=== PATIENT | female | born 1980 | race Caucasian/White ===

== ENCOUNTER 2020-08-19 08:54 | Emergency (ER) | payer OTHER ==
[~2020-08-19] VITALS: Ht 165.1 cm; Wt 99.2 kg
--- NOTE | 2020-08-19 09:25 | NUR ---
PT C/O LOWER QUADRANT ABD PAIN AND NAUSEA, 03/07. PT STATES THIS EPISODE STARTED YESTERDAY, BUT SHE HAS BEEN HAVING RECURRING BOUTS SINCE 2016. PT HAS BEEN SEEING HER PRIMARY CARE, BUT THE PAIN HAS BEEN WORSENING TO THE POINT SHE CANNOT TOLERATE. THE ABD PAIN IS ALSO CAUSING LOWER BACK PAIN. PT ALSO EXPERIENCING DIFFICULTY URINATING.
[2020-08-19] MEDS ORDERED: MORPHINE SULFATE 4 MG/ML, 1ML ONE ×2 (09:50→11:26)
[2020-08-19] MEDS ORDERED: ONDANSETRON 2MG/ML, 2ML ONE ×2 (09:50→12:41)
[2020-08-19] MEDS: MORPHINE SULFATE 4 MG/ML, 1ML IVPush PRN ×2 (09:53→11:28)
[2020-08-19 09:57] LABS: BASOPHILS % (AUTO) 1 % (0-1); EOSINOPHILS % (AUTO) 2 % (1-7); LYMPHOCYTES % (AUTO) 27 % (22-44); MEAN CORPUSCULAR HEMOGLOBIN 31.3 pg (27.0-34.8); MEAN CORPUSCULAR HGB CONC 34.8 g/dL (32.4-35.8); MEAN PLATELET VOLUME 7.8 fL (7.4-10.4); MONOCYTES % (AUTO) 6 % (2-9); NEUTROPHILS % (AUTO) 64 % (42-75); PLATELET COUNT 261 x10^3/uL (130-400); RED BLOOD COUNT 4.83 x10^6/uL (3.82-5.3); RED CELL DISTRIBUTION WIDTH 13.3 % (9.6-15.2)
[2020-08-19 09:59] LABS: MD NO
[2020-08-19] MEDS ORDERED: ONDANSETRON 2MG/ML, 2ML IVPush ONE ×2 (10:00→13:00)
[2020-08-19] MEDS ORDERED: SODIUM CHLORIDE FLUSH 10ML SYR IVF ONE (10:00)
[2020-08-19 10:04] LABS: ALANINE AMINOTRANSFERASE 16 U/L (12-78); ALBUMIN 3.9 g/dL (3.4-5.0); ANION GAP 9 mmol/L (5-15); CALCIUM 8.9 mg/dL (8.5-10.1); CHLORIDE 108 mmol/L (98-107); CREATININE 0.89 mg/dL (0.55-1.02)
[2020-08-19 10:08] LABS: ALKALINE PHOSPHATASE 47 U/L (45-117); BILIRUBIN,TOTAL 0.5 mg/dL (0.2-1.0); TOTAL PROTEIN 7.6 g/dL (6.4-8.2)
[2020-08-19 10:26] LABS: MICROSCOPIC INDICATED
[2020-08-19] MEDS ORDERED: OMNIPAQUE 350 MG/ML, 100ML BOTTLE ONE (11:02)
[2020-08-19] MEDS ORDERED: OXYcodone/APAP 10/325MG TABLET PO ONE (12:30)
[2020-08-19] MEDS ORDERED: SUCRALFATE 1 GM TABLET PO ONE (12:30)
[2020-08-19] MEDS ORDERED: OXYcodone/APAP 10/325MG TABLET ONE (12:41)
--- NOTE | 2020-08-19 13:39 | NUR ---
PT REC'VD DISCHARGE INSTRUCTIONS AND EDUCATION. PT HAD NO FURTHER QUESTIONS.
[2020-08-19 13:40] VITALS: BP 141/73
--- NOTE | 2020-08-19 13:57 | NUR ---
PT AMBULATED TO FL AREA, STEADY GAIT.
== END 2020-08-19 13:59 | disposition home or self-care (01) ==
LOC: ED 10:22
DX: K26.3 Acute duodenal ulcer without hemorrhage or perforation (principal); F17.200 Nicotine dependence, unspecified, uncomplicated
CPT/HCPCS: 36415; 74021; 74177; 80053; 81001; 83690; 84703; 85025; 87086; 96374; 96375; 96376; 99285; J2270; J2405; Q9967